=== PATIENT | male | born 1985 ===

== ENCOUNTER 2020-02-28 06:28 | Emergency (ER) | payer OTHER ==
[2020-02-28 06:34] VITALS: TEMP 98
--- NOTE | 2020-02-28 07:08 | XR ---
EXAMINATION TYPE: XR wrist complete LT DATE OF EXAM: 02/28/2020 CLINICAL HISTORY: Fall injury with pain. TECHNIQUE: Frontal, lateral, scaphoid and oblique images of the left wrist are obtained. COMPARISON: None FINDINGS: There is acute comminuted avulsion type fracture from the ulnar styloid with few small fra cture fragments. There is acute comminuted displaced intra-articular fracture through the distal radi al meta-epiphysis with multiple small fracture fragments. Step-off at the distal articular surface se en best on attempted lateral image. Distal fracture fragments are dorsally angulated. The carpal join t spaces are preserved. [id number] soft tissue swelling noted. IMPRESSION: There are acute intra-articular fractures distal radius and ulna as detailed above. (Initial encounter closed type posttraumatic fracture)
--- NOTE | 2020-02-28 07:35 | ED ---
Upper Extremity HPI <Harjinder Stinson - Last Filed: 02/28/20 08:55> - General Source: patient, EMS Mode of arrival: EMS Limitations: no limitations <Rubia Herrmann - Last Filed: 02/28/20 13:13> - General Chief Complaint: Extremity Injury, Upper Stated Complaint: Arm Injury, [facility] Time Seen by Provider: 02/28/20 06:33 - History of Present Illness Initial Comments: 34-year-old male presenting today for chief complaint of left wrist pain. Patient states when stepping out of his truck he fell extending his left wrist. Patient states he did not hit his head or neck he denies any injury to the chest or abdomen but states his significant pain in the left wrist. He states it is difficult to move secondary to pain. Patient denies any numbness, coolness pallor of the extremity, denies elbow or shoulder pain, or right UE pain. Patient denies additional complaints. (Rubia Herrmann) - Related Data Previous Rx's Medication Instructions Recorded HYDROcodone/APAP 7.5-325MG [[place] 1 tab PO Q6HR PRN 3 Days #12 tab 02/28/20 7.5-325] Allergies Allergy/AdvReac Type Severity Reaction Status Date / Time No Known Allergies Allergy Verified 02/28/20 07:54 Review of Systems ROS Other: All systems not noted in ROS Statement are negative. <Harjinder Stinson - Last Filed: 02/28/20 08:55> ROS Other: All systems not noted in ROS Statement are negative. <Rubia Herrmann - Last Filed: 02/28/20 13:13> ROS Statement: Those systems with pertinent positive or pertinent negative responses have been documented in the HPI. Past Medical History Past Medical History: No Reported History History of Any Multi-Drug Resistant Organisms: None Reported Past Surgical History: No Surgical Hx Reported Past Psychological History: No Psychological Hx Reported Smoking Status: Current every day smoker Past Alcohol Use History: None Reported Past Drug Use History: None Reported <Rubia Herrmann - Last Filed: 02/28/20 13:13> General Exam Limitations: no limitations <Rubia Herrmann - Last Filed: 02/28/20 13:13> - General Exam Comments Initial Comments: General: The patient is awake and alert, in no distress Eye: Pupils are equal, round and reactive to light, extra-ocular movements are intact. No nystagmus. There is normal conjunctiva bilaterally. No signs of icterus. Cardiovascular: There is a regular rate and rhythm. No murmur, rub or gallop is appreciated. Respiratory: Lungs are clear to auscultation, respirations are non-labored, breath sounds are equal. No wheezes, stridor, rales, or rhonchi. Gastrointestinal: Soft, non-distended, non-tender abdomen without masses or organomegaly noted. There is no rebound or guarding present. Musculoskeletal: No gross deformity and upon inspection of the wrist patient is scaphoid tenderness. Patient diffusely tender over both radius and ulnar distally. No proximal radial ulnar tenderness to range of motion at the elbow and shoulder no tenderness of the clavicle. Patient has no pain over the hand he has full range of motion of all 5 digits of the left hand. ABle to fingers crossed, thumbs up oppose small digit and thumb. Strength 5/5. Sensation intact proximal and distal to injury site. Radial pulses equal bilaterally 2+. Neurological: A&O x 3. CN II-XII intact grossly, There are no obvious motor or sensory deficits. Coordination appears grossly intact. Speech is normal. Skin: Skin is warm and dry and no rashes or lesions are noted. Psychiatric: Cooperative, appropriate mood & affect, normal judgment. (Rubia Herrmann) Course Vital Signs 02/28/20 02/28/20 02/28/20 06:30 07:15 08:21 Temperature 98 F Pulse Rate 70 80 79 Respiratory 17 16 16 Rate Blood Pressure 147/98 132/76 136/88 O2 Sat by Pulse 100 99 100 Oximetry 02/28/20 02/28/20 02/28/20 08:26 08:31 08:36 Temperature Pulse Rate 76 81 81 Respiratory 16 16 18 Rate Blood Pressure 134/91 139/80 132/79 O2 Sat by Pulse 99 100 99 Oximetry 02/28/20 09:17 Temperature Pulse Rate 71 Respiratory 16 Rate Blood Pressure 122/76 O2 Sat by Pulse 100 Oximetry Procedures - Orthopedic Fracture Reduction Fracture #1 Consent Obtained: written consent Side: left Fracture Reduction Location: radius, ulna Analgesia: procedural sedation Technique: traction/counter-traction Post Reduction X-rays Demonstrate: acceptable reduction Post-Reduction Neuro Exam: intact Post-Reduction Vascular Exam: intact Splint Applied: Yes Patient Tolerated Procedure: well - Procedural Sedation Procedural Sedation Start Time: 08:21 Procedural Sedation Stop Time: 08:50 Indications: fracture/dislocation reduction ASA Class: I Mallampati Airway Score: 1 Preparation: site monitor applied, pulse oximeter Fentanyl: IV IV Etomidate Dose (mgs): 20 Complications: none Patient Tolerated Procedure: well <Harjinder Stinson - Last Filed: 02/28/20 08:55> Medical Decision Making <Rubia Herrmann - Last Filed: 02/28/20 13:13> - Medical Decision Making xr fracture distal radius ulna slight displacement, comminuted. Attempted reduction, no zimmerman. consulted orthopedic surgery agreeable to care plan of discharge with splint and outpatient f/u with [facility]. Patient lives in [place] and states he may follow-up in [place] or here in the but I did recommend f/u in next 1-[address] Stinson agreeable to care plan and patient discharged appearing well. (Rubia Herrmann) Disposition <Harjinder Stinson - Last Filed: 02/28/20 08:55> Is patient prescribed a controlled substance at d/c from ED?: No Time of Disposition: 07:35 <Rubia Herrmann - Last Filed: 02/28/20 13:13> Clinical Impression: Fracture of distal end of left radius and ulna, Fall, Left wrist pain Disposition: HOME SELF-CARE Condition: Good Instructions (If sedation given, give patient instructions): Wrist Fracture in Adults (ED), Moderate Sedation (ED), Scaphoid Fracture (ED) Additional Instructions: Please use medication as discussed. Please follow-up with orthopedic surgery in next 2-3 days. Please return to emergency room if the symptoms increase or worsen or for any other concerns. Prescriptions: HYDROcodone/APAP 7.5-325MG [[place] 7.5-325] 1 tab PO Q6HR PRN 3 Days #12 tab PRN Reason: Pain Referrals: None,Stated [Primary Care Provider] - 1-2 days Adebayo Barnes DO [Medical Doctor] - 1-2 days
[2020-02-28] MEDS ORDERED: ETOMIDATE 2 MG/ML 10 ML VIAL IVP STA (08:06)
[2020-02-28] MEDS ORDERED: HYDROmorphone 0.5 MG/0.5 ML SYRINGE IVP STA (08:25)
--- NOTE | 2020-02-28 08:43 | XR ---
EXAMINATION TYPE: XR wrist limited LT DATE OF EXAM: 02/28/2020 COMPARISON: Left wrist x-ray earlier today. HISTORY: Left wrist fracture. TECHNIQUE: 2 views left wrist after reduction and casting. FINDINGS: Comminuted avulsion type fracture from ulnar styloid with tiny fracture fragments and acute comminuted intra-articular fracture through distal radial meta-epiphysis with multiple fracture frag ments and slight dorsal angulation remains present. No significant change in alignment after reductio n and casting. IMPRESSION: As above.
[2020-02-28 09:18] VITALS: BP 122/76; PULSE 71; RESP 16
== END 2020-02-28 09:09 | disposition home or self-care (01) ==
LOC: EC 06:28
DX: S52.612A Displaced fracture of left ulna styloid process, initial encounter for closed fracture (principal); S52.572A Other intraarticular fracture of lower end of left radius, initial encounter for closed fracture; F17.200 Nicotine dependence, unspecified, uncomplicated; V58.4XXA Person boarding or alighting a pick-up truck or van injured in noncollision transport accident, initial encounter; Y93.89 Activity, other specified
CPT/HCPCS: 73100; 73110; 96374; 96375; 99284; 25605; 99152; 99153; J1170